=== PATIENT | female | born 1960 | race Caucasian/White ===

== ENCOUNTER 2020-01-02 20:24 | Emergency (ER) | payer MEDICAID ==
[~2020-01-02] VITALS: Ht 154.9 cm; Wt 81.6 kg
[2020-01-02 20:30] VITALS: BP 154/66
[2020-01-02] MEDS ORDERED: SODIUM PHOSPHATE 118 ML ENEM RC ONE (22:20)
[2020-01-03 00:39] VITALS: BP 147/70
== END 2020-01-03 00:39 | disposition home or self-care (01) ==
LOC: MED 20:24
DX: K59.00 Constipation, unspecified (principal); Z98.890 Other specified postprocedural states
CPT/HCPCS: 74018; 99284; Q0092